=== PATIENT | female | born 1960 | race Caucasian/White ===

== ENCOUNTER → 2020-10-08 | Outpatient (CLI) | payer MEDICARE ==
[2020-10-08 14:36] LABS: HEMOGLOBIN 15.7 gm/dl (12.3-15.3); RED BLOOD COUNT 5.04 M/UL (4.00-5.10)
[2020-10-08 18:11] LABS: BUN/CREATININE RATIO 46 (0-10)
[2020-10-09 13:14] LABS: INSULIN 78.8 uIU/mL (2.6-24.9)
[2020-10-10 15:52] LABS: WHITE BLOOD COUNT 15.3 K/UL (4.5-11.0)
== END ==
LOC: LAB 13:36
PROVIDERS: Nurse Practitioner Family
DX: E11.65 Type 2 diabetes mellitus with hyperglycemia (principal); G47.33 Obstructive sleep apnea (adult) (pediatric); I10 Essential (primary) hypertension; M54.5 Low back pain; G47.00 Insomnia, unspecified; E78.5 Hyperlipidemia, unspecified; N39.3 Stress incontinence (female) (male); J30.2 Other seasonal allergic rhinitis; F41.1 Generalized anxiety disorder; E55.9 Vitamin D deficiency, unspecified; M25.50 Pain in unspecified joint; R00.0 Tachycardia, unspecified; R94.5 Abnormal results of liver function studies
CPT/HCPCS: 36415; 80053; 80061; 82607; 82652; 82728; 83036; 83540; 83550; 84260; 84443; 85025